=== PATIENT | female | born 1985 | race Caucasian/White ===

== ENCOUNTER 2017-08-20 08:27 | Outpatient (CLI) | payer OTHER ==
[~2017-08-20] VITALS: Ht 162.6 cm; Wt 86.4 kg
[2017-08-20] MEDS ORDERED: ZOLOFT25 MG PO (08:56)
[2017-08-20 09:01] VITALS: BP 117/73; BMI 32.7
[2017-08-20 09:36] LABS: BASOPHILS 0.3 % (0-2); EOSINOPHILS 11.9 % (0-7); HEMATOCRIT 38.2 % (36.0-48.0); HEMOGLOBIN 13.3 g/dL (12-16); IMMATURE GRANULOCYTES 0.1 % (0-5); LYMPHOCYTES 32.9 % (15-50); MCH 30.4 pg (26.0-34.0); MCHC 34.8 g/dL (31.0-37.0); MCV 87.4 fL (80.0-100.0); MEAN PLATELET VOLUME 9.3 fL (7.4-10.4); NEUTROPHILS 48.8 % (40-80); PLATELET COUNT 296 10x3/uL (130-400); RBC 4.37 10x6/uL (4.00-5.40); RDW 12.3 % (11.5-14.5); WBC 6.8 10x3/uL (4.8-10.8)
[2017-08-20 09:48] LABS: ANION GAP 11.3 mmol/L (8-16); CALCIUM 9.7 mg/dL (8.5-10.1); CARBON DIOXIDE 27.7 mmol/L (21.0-32.0)
[2017-08-20 09:49] LABS: APTT 29.2 SECONDS (22.8-39.4); INR 0.97 (0.85-1.17); PROTIME 12.8 SECONDS (11.6-15.0)
--- NOTE | 2017-08-20 12:45 | NUR ---
TRAY GIVEN FOR LUNCH.
--- NOTE | 2017-08-20 13:30 | NUR ---
PT UP TO BATHROOM FOR 1ST TIME SINCE PROCEDURE ASSISTED BY PIA TYSON RN.
--- NOTE | 2017-08-20 13:45 | NUR ---
PT C/0 PAIN TO BACK FLANK AREA AT A LEVEL OF 4. TYLENOL PO GIVEN.
[2017-08-20 14:20] LABS: HCG URINE NEGATIVE (NEGATIVE)
--- NOTE | 2017-08-20 14:45 | NUR ---
RM CHECK PT SLEEPING AT PRESENT TIME.
--- NOTE | 2017-08-20 15:00 | NUR ---
REPORT OFF TO SARANYA POWERS RN
--- NOTE | 2017-08-20 16:45 | NUR ---
1230 r'zack pt report from [place] james rn. see frequent vs sheet for all vs.
[2017-08-20 18:07] LABS: BASOPHILS 0.1 % (0-2); EOSINOPHILS 3.2 % (0-7); HEMATOCRIT 38.6 % (36.0-48.0); HEMOGLOBIN 13.2 g/dL (12-16); IMMATURE GRANULOCYTES 0.3 % (0-5); LYMPHOCYTES 10.7 % (15-50); MCH 30.4 pg (26.0-34.0); MCHC 34.2 g/dL (31.0-37.0); MCV 88.9 fL (80.0-100.0); MEAN PLATELET VOLUME 9.3 fL (7.4-10.4); MONOCYTES 6.4 % (2-11); NEUTROPHILS 79.3 % (40-80); PLATELET COUNT 259 10x3/uL (130-400); RBC 4.34 10x6/uL (4.00-5.40); RDW 12.5 % (11.5-14.5); WBC 15.6 10x3/uL (4.8-10.8)
[2017-08-20 19:56] VITALS: BP 129/78
--- NOTE | 2017-08-20 21:14 | NUR ---
PATIENT IS ALERT, WATCHING TV. URINE CUPS IN BATHROOM FOR HER TO COLLECT URINE FOR DR TO SEE. CALL LIGHT IN REACH.
[2017-08-21 02:31] VITALS: Ht 162.6 cm; Wt 86.4 kg
[2017-08-21 04:00] VITALS: BP 105/65
--- NOTE | 2017-08-21 09:36 | NUR ---
PT C/O SHARP THROBBING PAINS IN HER L.FLANK THAT RADIATE TO HER SIDE/ABDOMEN BELOW INCISION DRSG. PT STATES ITS BEEN VERY BAD PAIN ALL NIGHT AND PRN PAIN MEDICATION HELPS TEMPORARILY. PT ALSO NAUSEATED AND REQUESTED PRN ZOFRAN AND WAS PROVIDED WITH IT. NEW UA AND URINE CX ORDERED AND COLLECTED AND SENT TO LAB. URINE SPECIMENS OVERNIGHT ARE DARK CARMEN BUT THE MOST RECENT FROM TODAY IS A CLEAR YELLOW BUT STILL SLIGHTLY CONCENTRATED. RENAL COMBAT CONTROL MANAGER ERICK AT BEDSIDE ASSESSING PT AND WANTS TO KEEP ALL URINE TO CONTINUE MONITERING UNTIL FURTHER NOTICE. PT SITTING UP IN BED AND DENIES ANY FURTHER NEEDS AT THIS TIME. WILL CTM CLOSELY.
[2017-08-21 09:53] LABS: ANION GAP 11.9 mmol/L (8-16); BASOPHILS 0.1 % (0-2); CALCIUM 9.7 mg/dL (8.5-10.1); CREATININE - SERUM 1.1 mg/dL (0.6-1.3); EOSINOPHILS 0.8 % (0-7); HEMATOCRIT 38.7 % (36.0-48.0); HEMOGLOBIN 13.4 g/dL (12-16); IMMATURE GRANULOCYTES 0.3 % (0-5); LYMPHOCYTES 11.1 % (15-50); MCH 30.7 pg (26.0-34.0); MCHC 34.6 g/dL (31.0-37.0); MCV 88.6 fL (80.0-100.0); MEAN PLATELET VOLUME 9.3 fL (7.4-10.4); MONOCYTES 4.6 % (2-11); NEUTROPHILS 83.1 % (40-80); PLATELET COUNT 275 10x3/uL (130-400); POTASSIUM - SERUM 3.9 mmol/L (3.5-5.1); RBC 4.37 10x6/uL (4.00-5.40); RDW 12.5 % (11.5-14.5); WBC 13.5 10x3/uL (4.8-10.8)
--- NOTE | 2017-08-21 10:41 | NUR ---
PT VOIDED 20ML CLEAR YELLOW URINE ON LAST VOID AND STATES IT WAS HURTING AND THAT SHE STILL FEELS LIKE SHE NEEDS TO URINATE. BLADDER SCAN PERFORMED AND THERE IS NO RETENTION NOTED. INITIATED IV FLUIDS NS @50ML/HR VIA L.AC PIV WITH DRSG CDI AND SWAB CAPS IN USE. PROVIDED PT WITH TYLENOL FOR LOW TEMP OF 99.3. PT DENIES ANY FURTHER NEEDS AT THIS TIME. WILL CPOC.
[2017-08-21 10:59] LABS: ALBUMIN 3.6 g/dL (3.4-5.0); BILIRUBIN - DIRECT 0.07 mg/dL (0.00-0.30); BILIRUBIN - INDIRECT 0.25 mg/dL (0.00-1.00); BILIRUBIN - TOTAL 0.32 mg/dL (0.2-1.3); PROTEIN - SERUM 7.2 g/dL (6.4-8.2)
[2017-08-21 10:59] LABS: APPEARANCE HAZY (CLEAR); BACTERIA MANY /hpf (NONE SEEN); BILIRUBIN NEGATIVE (NEGATIVE); COLOR YELLOW (YELLOW); GLUCOSE NEGATIVE (NEGATIVE); KETONE NEGATIVE (NEGATIVE); LEUKOCYTE ESTERASE TRACE (NEGATIVE); MUCUS <1+ /lpf (NONE SEEN); NITRITE NEGATIVE (NEGATIVE); PROTEIN NEGATIVE (NEGATIVE); RED CELLS - URINE 25-50 /hpf (0-5); SPECIFIC GRAVITY 1.025 (1.005-1.020); UROBILINOGEN NORMAL (NORMAL); WHITE CELLS - URINE 0-5 /hpf (0-5)
--- NOTE | 2017-08-21 11:30 | NUR ---
FSBS 104 NO ACTION REQUIRED PER SS. PT REQUESTED SOME JELLO AND WAS PROVIDED WITH IT. NO FURTHER NEEDS AT THIS TIME.
--- NOTE | 2017-08-21 14:09 | NUR ---
INITIATED PTS IV ANBX ROCEPHIN AND TEACHING PROVIDED IT IS A NEW MEDICATION. PROVIDED PT WITH PRN TYLENOL WELL FOR ACHING PAINS STILL IN HER L.FLANK CURRENTLY ABOUT A 3-4 ON PAIN SCALE. FAMILY AT BEDSIDE. NO FURTHER NEEDS AT THIS TIME. WILL CPOC.
--- NOTE | 2017-08-21 16:39 | NUR ---
PT SITTING UP IN BED RESTING WITH FAMILY AT BEDSIDE. PT DENIES ANY CURRENT PAIN OR NEEDS. CL IN REACH. WILL CPOC.
--- NOTE | 2017-08-21 17:09 | NUR ---
STILL COLLECTING PTS URINE AND WATCHING FOR BLOOD. PT DID PASS SMALL BLOOD CLOT BUT URINE IS CLEAR YELLOW. WILL CONTINUE MONITERING PT DOES STATE SHE IS FEELING BETTER AND DENIES ANY PAIN OR NAUSEA. WILL CTM.
[2017-08-21 17:54] VITALS: BP 107/50
--- NOTE | 2017-08-21 21:02 | NUR ---
PATIENT IS ALERT AND WATCHING TV, IV IN LEFT AC WITH NS AT 50ML/HR. STATES "THE PAIN IS MUCH BETTER". DRESSING NOTED TO LEFT FLANK AREA CLEAN, DRY AND INTACT. CALL LIGHT IN REACH.
[2017-08-22] VITALS: BP 106/63
--- NOTE | 2017-08-22 00:17 | NUR ---
PT RESTING WITH EYES CLOSED. RESP EVEN AND REGULAR. SR UP X2,CALL LIGHT WITHIN REACH.
[2017-08-22 05:29] LABS: BASOPHILS 0.2 % (0-2); EOSINOPHILS 2.7 % (0-7); HEMATOCRIT 33.2 % (36.0-48.0); HEMOGLOBIN 11.4 g/dL (12-16); IMMATURE GRANULOCYTES 0.2 % (0-5); LYMPHOCYTES 31.3 % (15-50); MCH 30.4 pg (26.0-34.0); MCHC 34.3 g/dL (31.0-37.0); MCV 88.5 fL (80.0-100.0); MEAN PLATELET VOLUME 9.3 fL (7.4-10.4); MONOCYTES 10.7 % (2-11); NEUTROPHILS 54.9 % (40-80); PLATELET COUNT 243 10x3/uL (130-400); RBC 3.75 10x6/uL (4.00-5.40); RDW 12.6 % (11.5-14.5)
[2017-08-22 05:32] LABS: WBC 9.2 10x3/uL (4.8-10.8)
[2017-08-22 05:47] LABS: ANION GAP 8.5 mmol/L (8-16); CALCIUM 8.3 mg/dL (8.5-10.1); CARBON DIOXIDE 28.9 mmol/L (21.0-32.0); POTASSIUM - SERUM 3.4 mmol/L (3.5-5.1)
--- NOTE | 2017-08-22 07:10 | NUR ---
AM ROUNDING DONE WITH PATIENT APPEARING TO BE ASLEEP. LAYING ON RIGHT SIDE. LEFT AC SEEN WITH NS INFUSING AT 50 CC/HR. ON ROOM AIR. WILL MONITOR. 0730-CALLED TO ROOM, IV MACHINE IS BEEPING. MORE VOLUME ADDED TO MACHINE. LEFT UPPER FLANK AREA SEEN WITH C/D/I DRESSING OF 2 X 2 AND OPSITE.
[2017-08-22 08:10] VITALS: BP 113/62
[2017-08-22] MEDS ORDERED: BACTRIM DS TABL1 TAB PO (09:20)
--- NOTE | 2017-08-22 10:30 | NUR ---
1020-PATIENT INSTRUCTED TO NEW ORAL ANTIBIOTICS OF BACTRIM DS. INFORMATION SHEET PRINTED OFF FACILITY REFERENCE OF EMAR AND GIVEN TO PATIENT SHE IS BREAST FEEDING. ASKED THAT PATIENT WAIT FOR APPROX. AN HOUR TO MONITOR FOR ANY SIDE EFFECTS. AT [facility].
--- NOTE | 2017-08-22 11:42 | NUR ---
VERBAL AND WRITTEN DISCHARGE INSTRUCTIONS GIVEN TO PATIENT AND SPOUSE. DRESSING TO LEFT UPPER FLANK AREA STILL C/D/I. SALINE LOCK REMOVED WITH CATH TIP INTACT. WILL DISCHARGE VIA WHEELCHAIR.
== END 2017-08-22 12:29 | disposition home or self-care (01) ==
LOC: D.OPS 08:27 → D.M2 08:27 → D.OPS 11:00 → D.RAD 11:00 → D.M2 19:15 → D.OPS 08-22 12:29
PROVIDERS: General Practice; Internal Medicine; Internal Medicine Nephrology
DX: N28.89 Other specified disorders of kidney and ureter (principal); M54.6 Pain in thoracic spine; M54.5 Low back pain; Z01.812 Encounter for preprocedural laboratory examination; D30.02 Benign neoplasm of left kidney